=== PATIENT | male | born 1985 | race Caucasian/White ===

== ENCOUNTER 2022-05-04 20:55 | Emergency (ER) | payer SELFPAY ==
[2022-05-04] MEDS ORDERED: NAPROXEN500 MG PO (22:45)
[2022-05-04 23:08] VITALS: BP 137/87
== END 2022-05-04 23:09 | disposition home or self-care (01) | DRG 563 ==
LOC: ED 20:55
DX: S63.91XA Sprain of unspecified part of right wrist and hand, initial encounter (principal); F43.10 Post-traumatic stress disorder, unspecified; W22.8XXA Striking against or struck by other objects, initial encounter